=== PATIENT | female | born 1990 | race African-American/Black ===

== ENCOUNTER 2023-01-01 15:33 | Emergency (ER) | payer MEDICAID, OTHER ==
[~2023-01-01] VITALS: Ht 160 cm; Wt 89.0 kg
[2023-01-01 15:41] VITALS: BP 139/77
[2023-01-01] MEDS ORDERED: TOPUD PO (17:25)
[2023-01-01] MEDS ORDERED: LIDO1ADH23 TP (17:25)
[2023-01-01] MEDS ORDERED: METH-653 MT (17:25)
[2023-01-01] MEDS ORDERED: IBUP-2028 MT (17:25)
[2023-01-01] MEDS ORDERED: IBUPROFEN 400MG TABLET PO ONE (17:30)
[2023-01-01] MEDS ORDERED: LIDOCAINE 5% PATCH TOP SCH (17:30)
[2023-01-01] MEDS ORDERED: ACETAMINOPHEN 325MG TABLET PO ONE (17:30)
[2023-01-01] MEDS ORDERED: METHOCARBAMOL 750MG TABLET PO SCH (17:30)
== END 2023-01-01 17:58 | disposition home or self-care (01) ==
LOC: ER 15:33
DX: M79.10 Myalgia, unspecified site (principal); V43.52XA Car driver injured in collision with other type car in traffic accident, initial encounter; Y93.89 Activity, other specified; Y92.488 Other paved roadways as the place of occurrence of the external cause
CPT/HCPCS: 99284